=== PATIENT | male | born 1930 | race Two or more races ===

== ENCOUNTER 2022-03-25 15:25 | Inpatient (IN) | payer OTHER ==
[~2022-03-25] VITALS: Ht 185.4 cm; Wt 59.5 kg
--- NOTE | 2022-03-25 15:30 | NUR ---
[facility], STAFF NOTED LOW O2SAT WHILE PERFORMING WOUND CARE. PLACED ON BED, AAOX4, TACHYPNEIC RR- 28, SATURATING AT 88% WITH 2LIT O2 CHANGED TO NRM 15LIT O2 SATURATING AT 98%.
--- NOTE | 2022-03-25 15:49 | NUR ---
DR REESE AT BEDSIDE
--- NOTE | 2022-03-25 16:22 | NUR ---
BLOOD DRAWN, SWAB FOR COVID19 SENT TO LAB
[2022-03-25 16:25] LABS: ABG BASE EXCESS 2.4 mmol/L; ABG PCO2 32.6 mmHg (35.0-45.0); ABG PO2 84.7 mmHg (75.0-100.0); AaDO2 595.7 mmHg; COHb 1.2 % (0.5-1.5); MetHb 0.2 % (0.0-1.5); O2Hb 94.7 % (94.0-97.0); SITE, ABG Right Radial; VENT MODE, BG NRB
--- NOTE | 2022-03-25 16:34 | NUR ---
registrar assistant stevo marquez left contact number [phone]
[2022-03-25 16:56] LABS: BASOPHILS % (AUTO) 0.2 % (0.0-2.0); EOSINOPHILS % (AUTO) 0.1 % (0.0-6.0); HEMATOCRIT 24 % (39-51); HEMOGLOBIN 7.7 g/dL (13.5-17.5); LYMPHOCYTES # (AUTO) 0.7 K/uL (0.8-4.8); LYMPHOCYTES % (AUTO) 9.5 % (20.0-44.0); MEAN CORPUSCULAR HGB CONC 33 g/dl (31.0-36.0); MEAN CORPUSCULAR VOLUME 87 fL (80-96); MONOCYTES # (AUTO) 0.4 K/uL (0.1-1.30); MONOCYTES % (AUTO) 5.2 % (2.0-12.0); NEUTROPHILS # (AUTO) 6.1 K/uL (1.8-8.9); PLATELET COUNT (AUTO) 235 K/uL (150-450); WHITE BLOOD COUNT (AUTO) 7.2 K/uL (4.3-11.0)
[2022-03-25 17:22] LABS: ALANINE AMINOTRANSFERASE 15 U/L (12-78); ALBUMIN 2.8 g/dL (3.4-5.0); ALKALINE PHOSPHATASE 96 U/L (46-116); ASPARTATE AMINOTRANSFERASE 28 U/L (15-37); BILIRUBIN,DIRECT 0.2 mg/dL (0.0-0.2); BILIRUBIN,TOTAL 0.8 mg/dL (0.2-1.0); CALCIUM, SERUM 9.5 mg/dL (8.5-10.1); CARBON DIOXIDE 26 mmol/L (21-32); CHLORIDE 106 mmol/L (98-107); CREATININE 2.7 mg/dL (0.6-1.3); GLUCOSE 204 mg/dL (74-106); POTASSIUM 3.5 mmol/L (3.5-5.1); SODIUM SERUM 147 mmol/L (136-145); TOTAL PROTEIN, SERUM 6.9 g/dL (6.4-8.2)
[2022-03-25] MEDS ORDERED: IV NS 0.9% 1,000 ML BAG IV ONE (17:30)
[2022-03-25 17:39] LABS: UREA NITROGEN, BLOOD 97 mg/dL (7-18)
--- NOTE | 2022-03-25 18:54 | NUR ---
PTS PHONE #: [phone]. pT ADDRESS [id number] PT DAUGHTER MIRNA,
[2022-03-25 18:59] LABS: LYMPHOCYTES % (MANUAL) 7 % (16-48); MONOCYTES % (MANUAL) 3 % (0-11.0); NEUTROPHILS % (MANUAL) 90 (42-76)
--- NOTE | 2022-03-25 19:02 | NUR ---
CALLED [facility] AGAIN WITH UPDATED ADDRESS. ADDRESS ON FILE DID NOT MATCH WHAT [facility] HAD FOR PT. EXPECTING CALL BACK.
--- NOTE | 2022-03-25 20:07 | NUR ---
SWAB FOR RAPID INFLUENZA SENT TO LAB
--- NOTE | 2022-03-25 21:50 | NUR ---
RN NOTES RECEIVED REPORT FROM ER NURSE BEA.
--- NOTE | 2022-03-25 21:53 | NUR ---
REPORT GIVEN TO CARYN JEAN BAPTISTE ICU ROOM 263 FOR SUJEY
[2022-03-25] MEDS ORDERED: ACETAMINOPHEN 325 MG TABLET PO PRN (22:00)
[2022-03-25] MEDS ORDERED: Z GUARD REMEDY 4 OZ OINT TP PRN (22:00)
[2022-03-25] MEDS ORDERED: ONDANSETRON HCL/PF 4 MG/2 ML VIAL IVP PRN (22:00)
[2022-03-25] MEDS ORDERED: AMLO-213 PO (22:13)
[2022-03-25] MEDS ORDERED: ATOR40TA PO (22:13)
[2022-03-25] MEDS ORDERED: PANT40TA49 PO (22:13)
[2022-03-25] MEDS ORDERED: POLY17PO4 PO (22:13)
[2022-03-25] MEDS ORDERED: FERR325T30 PO (22:13)
[2022-03-25] MEDS ORDERED: TRAZ-182 PO (22:13)
--- NOTE | 2022-03-25 22:20 | NUR ---
U/S TECH AT BEDSIDE
[2022-03-25] MEDS ORDERED: FURO20TA4 PO (22:21)
[2022-03-25] MEDS ORDERED: CLOP75TA15 PO (22:21)
[2022-03-25] MEDS ORDERED: CARB1TAB21 PO (22:21)
[2022-03-25] MEDS ORDERED: ISOS30TA86 PO (22:21)
[2022-03-25] MEDS ORDERED: GABA-532 PO (22:21)
[2022-03-25] MEDS ORDERED: HYDR100T27 PO (22:21)
[2022-03-25] MEDS ORDERED: LABE200T5 PO (22:21)
[2022-03-25] MEDS ORDERED: HEPARIN INFUSION/D5W 500 ML IV PRN (23:00)
--- NOTE | 2022-03-25 23:15 | NUR ---
CT OF THE HEAD DONE ON THE WAY FOR ADMISSION TO ICU
--- NOTE | 2022-03-25 23:20 | NUR ---
CARPET WEAVER NOTES ADMITTED A 89 Y/O MALE [facility], WITH DX OF RESPIRATORY FAILURE AND WITH HX OF HEART FAILURE, RESPIRATORY FAILURE, CKD STAGE 3, PULMONARY HTN, CAD WITH CABG X 2. A/O X 2 WITH PERIODS OF CONFUSION, ON NON REBREATHER MASK @ 15 LMP SATING AT 98%, RESPIRATORY EVEN AND UNLABORED. NOTED WITH LFA # 20 PERIPHERAL LINE, FLUSHED WITH NS, NO S/S OF INFILTRATION NOTED. PATIENT IMMEDIATELY CONNECTED TO SIGNAL WIRER SHOWING NSR/ SINUS BRADYCARDIA. BODY ASSESSMENT DONE, NOTED WITH LEFT HEEL AND RIGHT HEEL PRESSURE INJURY, INITIAL TREATMENT DONE. PHOTO TAKEN AND PLACED IT PATIENT CHART. ALL SAFETY PRECAUTION PROVIDED. BED IN LOWEST POSITION. LOCKED, BED ALARM ARMED. CALL LIGHT WITH REACH.
[2022-03-25 23:25] VITALS: BP 159/65
[2022-03-26] VITALS (29 sets, daily range): BP systolic 138–170; BP diastolic 50–104
--- NOTE | 2022-03-26 00:05 | NUR ---
RN NOTES NOTIFIED [facility] REGARDING PATIENT LATEST HGB- 7.0, HCT-22, PER [facility] HOLD HEPARIN.
[2022-03-26] MEDS ORDERED: HEPARIN INFUSION/D5W 500 ML IV ONE (00:23)
[2022-03-26] MEDS ORDERED: FUROSEMIDE 20 MG/2 ML VIAL IV ONE (00:45)
[2022-03-26] MEDS ORDERED: CEFEPIME 1 GM in IV D5W 50 ML IV ONE (01:00)
[2022-03-26] MEDS ORDERED: CEFEPIME 1 GM VIAL ONE (01:37)
[2022-03-26 05:12] LABS: BASOPHILS % (AUTO) 0.2 % (0.0-2.0); EOSINOPHILS % (AUTO) 0.2 % (0.0-6.0); HEMATOCRIT 20 % (39-51); LYMPHOCYTES # (AUTO) 0.7 K/uL (0.8-4.8); LYMPHOCYTES % (AUTO) 9.2 % (20.0-44.0); MEAN CORPUSCULAR HGB CONC 33 g/dl (31.0-36.0); MEAN CORPUSCULAR VOLUME 88 fL (80-96); MONOCYTES # (AUTO) 0.4 K/uL (0.1-1.30); MONOCYTES % (AUTO) 6.3 % (2.0-12.0); NEUTROPHILS % (AUTO) 84.1 % (43.0-81.0); PLATELET COUNT (AUTO) 191 K/uL (150-450); RED BLOOD CELL COUNT(AUTO) 2.33 MIL/uL (4.5-6.0); WHITE BLOOD COUNT (AUTO) 7.1 K/uL (4.3-11.0)
[2022-03-26 05:13] LABS: HEMOGLOBIN 6.7 g/dL (13.5-17.5)
[2022-03-26 05:50] LABS: IRON, SERUM 24 ug/dl (50-175); TOTAL IRON BINDING CAPACITY 188 ug/dl (250-450)
[2022-03-26 06:02] LABS: CHOLESTEROL 117 mg/dL (<200); FERRITIN 399 ng/mL (8-388); HDL CHOLESTEROL 43 mg/dL (40-60); LDL 57 mg/dL (0-99); THYROID STIMULATING HORMONE 3.043 uIU/mL (0.358-3.74); TRIGLYCERIDES 94 mg/dL (30-150)
[2022-03-26 06:10] LABS: CALCIUM, SERUM 9.6 mg/dL (8.5-10.1); CARBON DIOXIDE 26 mmol/L (21-32); CHLORIDE 109 mmol/L (98-107); CREATININE 2.6 mg/dL (0.6-1.3); GLUCOSE 181 mg/dL (74-106); MAGNESIUM 2.4 mg/dL (1.8-2.4); PHOSPHORUS 4.4 mg/dL (2.5-4.9); SODIUM SERUM 150 mmol/L (136-145)
[2022-03-26 06:12] LABS: UREA NITROGEN, BLOOD 95 mg/dL (7-18)
--- NOTE | 2022-03-26 08:06 | NUR ---
SUPERVISOR PRESS ROOM OPENING NOTES: PT IN BED ASLEEP BUT WAKES UP SCREAMS FOR HELP ONLY WANTS TO GO HOME, ON NON REBREATHER 15 L/MIN, RT AT BEDSIDE DRAWING ABG.O2 SAT 97%, NOTED WITH CONFUSION, SALINE LOCK AT LFA #20 G CONNECTED TO NS TKO.BED IN LOW AND LOCKED POSITION, CONDOM CATH IN PLACE, SIDE RAIL UP, CALL LIGHT WITHIN REACH WILL MONITOR
[2022-03-26] MEDS: PANTOPRAZOLE 40 MG TABLET.DR PO SCH (08:17)
[2022-03-26 08:28] LABS: ABG BASE EXCESS 1.9 mmol/L; ABG OXYGEN SATURATION 99.3 % (92.0-98.5); ABG PCO2 36.7 mmHg (35.0-45.0); ABG PH 7.463 (7.350-7.450); ABG PO2 293.1 mmHg (75.0-100.0); COHb 0.5 % (0.5-1.5); MetHb 0.3 % (0.0-1.5); O2Hb 98.5 % (94.0-97.0); SITE, ABG Right Radial; VENT MODE, BG NRB
[2022-03-26] MEDS ORDERED: HEPARIN SODIUM, PORCINE 5000 UNITS/1 ML VIAL SQ SCH (09:00)
--- NOTE | 2022-03-26 09:02 | NUR ---
RN NOTES: CALLED DAUGHTER MIRNA AT [phone] TO OBTAIN CONSENT FOR BLOOD TRANSFUSION, NO ANSWER LEFT MESSAGE TO CALL BACK
[2022-03-26] MEDS: HEPARIN INFUSION/D5W 500 ML IV PRN (13:53)
[2022-03-26] MEDS ORDERED: HEPARIN SODIUM, PORCINE 5000 UNITS/1 ML VIAL IV ONE ×2 (14:00)
[2022-03-26 16:14] LABS: HEMOGLOBIN 8.8 g/dL (13.5-17.5)
[2022-03-26] MEDS: hydrALAZINE HCL IV 20 MG VIAL IV PRN ×2 (17:10→23:06)
[2022-03-26 17:22] LABS: LYMPHOCYTES % (MANUAL) 6 % (16-48); MONOCYTES % (MANUAL) 5 % (0-11.0); NEUTROPHILS % (MANUAL) 89 (42-76)
--- NOTE | 2022-03-26 19:30 | NUR ---
CU RN CLOSING NOTE PT IN BED ASLEEP BUT EASILY AROUSABLE ON NASAL CANNULA 6 LITER/MIN, NO SOB NOTED ALL DUE MEDS ARE GIVEN ORDERED.CONTINUE ON HEPARIN DRIP, NO BLEEDING NOTED.ALL DUE MEDS ARE GIVEN ORDERED, BED IN LOW AND LOCKED POSITION, SIDE RAILS UP, NO S/S OF PAIN OR DISCOMFORT, ENDORSE TO MARINE CARGO INSPECTOR RN FOR SUJEY
--- NOTE | 2022-03-26 20:00 | NUR ---
RN NOTE APTT RESULTED 56.3. NO ADJUSTMENTS MADE ON TITRATION PER PROTOCOL.
--- NOTE | 2022-03-26 20:22 | NUR ---
RN OPENING NOTE PT SLEEPING WITH EQUAL CHEST RISE AND FALL ON 6 LPM NC. SKIN IS PALE AND DRY. NO ACUTE SIGNS OF DISTRESS. DENIES OTHER NEEDS AT THIS TIME. BED LOCKED AND AT LOWEST LEVEL WITH 2 RAILS UP. CALL LIGHT WITHIN REACH. L FA 20G INFUSING HEPARIN AT 1100 U/HR. NO ACUTE SIGNS OF DISTRESS. BED LOCKED AND AT LOWEST LEVEL WITH 2 RAILS UP. CALL LIGHT WITHIN REACH. BED ALARM ON.
[2022-03-26 22:41] LABS: HEMOGLOBIN 7.8 g/dL (13.5-17.5)
[2022-03-27] VITALS (29 sets, daily range): BP systolic 136–183; BP diastolic 50–75
[2022-03-27] MEDS: CEFEPIME 2 GM in IV D5W 100 ML IV SCH (02:02)
--- NOTE | 2022-03-27 04:12 | NUR ---
RN NOTE APTT RESULTED 52.4. NO CHANGES MADE TO HEPARIN INFUSION PER PROTOCOL.
[2022-03-27 05:17] LABS: BASOPHILS % (AUTO) 0.2 % (0.0-2.0); EOSINOPHILS % (AUTO) 1.1 % (0.0-6.0); HEMATOCRIT 26 % (39-51); HEMOGLOBIN 8.5 g/dL (13.5-17.5); LYMPHOCYTES # (AUTO) 0.7 K/uL (0.8-4.8); LYMPHOCYTES % (AUTO) 6.4 % (20.0-44.0); MEAN CORPUSCULAR HGB CONC 33 g/dl (31.0-36.0); MEAN CORPUSCULAR VOLUME 88 fL (80-96); MONOCYTES # (AUTO) 0.7 K/uL (0.1-1.30); MONOCYTES % (AUTO) 6.3 % (2.0-12.0); NEUTROPHILS # (AUTO) 9.1 K/uL (1.8-8.9); PLATELET COUNT (AUTO) 221 K/uL (150-450); RED BLOOD CELL COUNT(AUTO) 2.94 MIL/uL (4.5-6.0); WHITE BLOOD COUNT (AUTO) 10.6 K/uL (4.3-11.0)
[2022-03-27 05:23] LABS: CALCIUM, SERUM 9.5 mg/dL (8.5-10.1); CARBON DIOXIDE 27 mmol/L (21-32); CHLORIDE 109 mmol/L (98-107); CREATININE 2.5 mg/dL (0.6-1.3); UREA NITROGEN, BLOOD 77 mg/dL (7-18)
[2022-03-27 05:53] LABS: SODIUM SERUM 148 mmol/L (136-145)
[2022-03-27 06:04] LABS: ABG BASE EXCESS 3.8 mmol/L; ABG OXYGEN SATURATION 89.6 % (92.0-98.5); ABG PCO2 37.6 mmHg (35.0-45.0); ABG PH 7.481 (7.350-7.450); ABG PO2 57.8 mmHg (75.0-100.0); AaDO2 213.1 mmHg; COHb 0.9 % (0.5-1.5); MetHb 0.2 % (0.0-1.5); O2Hb 88.6 % (94.0-97.0); SITE, ABG Right Radial; VENT MODE, BG NASAL CANNULA 6 LPM
[2022-03-27 06:05] LABS: GLUCOSE 365 mg/dL (74-106); POTASSIUM 2.6 mmol/L (3.5-5.1)
[2022-03-27] MEDS: hydrALAZINE HCL IV 20 MG VIAL IV PRN (06:23)
[2022-03-27] MEDS ORDERED: POTASSIUM CHLORIDE 20 MEQ TAB.PRT.SR PO ONE (07:00)
[2022-03-27] MEDS: POTASSIUM CL. PREMIX PERIPHER. 50 ML IV SCH ×3 (07:23→09:29)
[2022-03-27] MEDS: PANTOPRAZOLE 40 MG TABLET.DR PO SCH (07:24)
--- NOTE | 2022-03-27 07:30 | NUR ---
RN CLOSING NOTE PT A&OX1. PT PLACED ON SIMPLE FACE MASK BY RT AT 10 LPM. SKIN IS PALE AND DRY. BP HAS BEEN ELEVATED GREATER THAN 160 DURING SHIFT. GIVEN HYDRALAZINE IV Q6 PRN. L FA 20G INFUSING HEPARIN AT 1100 U/HR. NO ACUTE SIGNS OF DISTRESS. BED LOCKED AND AT LOWEST LEVEL WITH 2 RAILS UP. CALL LIGHT WITHIN REACH. BED ALARM ON.
--- NOTE | 2022-03-27 07:30 | NUR ---
RN OPENING NOTE RECEIVED PT FROM SKIRT MAKER SLEEPING WITH EQUAL CHEST RISE AND FALL ON 10 LPM SIMPLE MASK. SKIN IS PALE AND DRY. NO ACUTE SIGNS OF DISTRESS. DENIES OTHER NEEDS AT THIS TIME. BED LOCKED AND AT LOWEST LEVEL WITH 3 RAILS UP. K+ LEVEL AT 2.57. ORDERS FOR K+ REPLACEMENT RECEIVED. HEMOGLOBIN AT 8.5. CALL LIGHT WITHIN REACH. L FA 20G INFUSING HEPARIN AT 1100 U/HR. NO ACUTE SIGNS OF DISTRESS. BED LOCKED. CALL LIGHT WITHIN REACH. BED ALARM ON. WILL MONITOR THROUGHOUT DAY
[2022-03-27] MEDS ORDERED: NTG 50 MG/D5W250 ML BOTTL 250 ML IV PRN ×3 (09:00→16:00)
[2022-03-27] MEDS: hydrALAZINE HCL 50 MG TABLET PO SCH ×3 (09:29→16:46)
[2022-03-27] MEDS: FUROSEMIDE 100 MG/10 ML VIAL IV SCH ×3 (09:30→16:46)
--- NOTE | 2022-03-27 09:43 | NUR ---
RN NOTE PATIENT KEEPS YELLING FOR HELP. PATIENT SAYS HE CANNOT BREATHE WELL BUT IS SATING AT 99%% O2. STILL AT 10L ON SIMPLE FACE MASK. COMDOM CATH CHANGED
[2022-03-27] MEDS: HEPARIN INFUSION/D5W 500 ML IV PRN (12:26)
--- NOTE | 2022-03-27 15:30 | NUR ---
RN NOTE NITROGLYCERINE DRIP STARTED AT 3MCG/MIN
--- NOTE | 2022-03-27 17:40 | NUR ---
RN NOTE [facility], LAB NAMED [facility]EE[facility]K LEE. 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
--- NOTE | 2022-03-27 19:23 | NUR ---
SMALL BOAT ENGINEER OPENING NOTES: RECEIVED PT IN BED AT SITTING POSITION. ALERT/ORIENTED X2 WITH CONFUSION AND VERBALLY RESPONSIVE. KEPT ASKING FOR WATER. ON SIMPLE FACE MASK AT 10 LPM AND PT TOLERATED WELL. IV ACCESS ON LFA#20G AND RT WRIST#20G INTACT AND PATENT. NO S/S OF INFILTRATIONS. INFUSING HEPARIN AT 1100 U/HR. NITRO DRIP RUNNING AT 20 MCG/MIN. NO C/O PAIN OR DISCOMFORT. NO ACUTE DISTRESS. ALL SAFETY MEASURES IN PLACE. BED IN LOWEST POSITION AND LOCKED. SIDE RAILS UP- X3, PLACE CALL LIGHT WITHIN REACH. BED ALARM ON. WILL CONTINUE TO MONITOR
--- NOTE | 2022-03-27 19:29 | NUR ---
RN CLOSING NOTE PT A&OX1. PT ON SIMPLE FACE MASK 10 LPM. SKIN IS PALE AND DRY. BP HAS BEEN ELEVATED GREATER THAN 150 DURING SHIFT. L FA 20G INFUSING HEPARIN AT 1100 U/HR. NITRO DRIP RUNNING AT 20 MCG/MIN. PATIENT CONSTANTLY ASKING FOR WATER AND AIR. O2 SAT AT 98% +. NO ACUTE SIGNS OF DISTRESS. BED LOCKED AND AT LOWEST LEVEL WITH 3 RAILS UP. CALL LIGHT WITHIN REACH. BED ALARM ON. WILL ENDORSE TO FIBROUS WALLBOARD INSPECTOR FOR CONTINUATION OF CARE
[2022-03-27 21:08] LABS: HEMOGLOBIN 8.2 g/dL (13.5-17.5)
[2022-03-27 22:09] LABS: HEMOGLOBIN 8.2 g/dL (13.5-17.5)
[2022-03-28] VITALS (24 sets, daily range): BP systolic 130–166; BP diastolic 54–77
[2022-03-28] MEDS: CEFEPIME 2 GM in IV D5W 100 ML IV SCH (02:14)
[2022-03-28 04:51] LABS: BASOPHILS % (AUTO) 0.4 % (0.0-2.0); EOSINOPHILS % (AUTO) 1.8 % (0.0-6.0); HEMATOCRIT 29 % (39-51); HEMOGLOBIN 9.5 g/dL (13.5-17.5); LYMPHOCYTES % (AUTO) 13.1 % (20.0-44.0); MEAN CORPUSCULAR HGB CONC 33 g/dl (31.0-36.0); MEAN CORPUSCULAR VOLUME 87 fL (80-96); MONOCYTES # (AUTO) 0.6 K/uL (0.1-1.30); MONOCYTES % (AUTO) 8.3 % (2.0-12.0); NEUTROPHILS # (AUTO) 5.7 K/uL (1.8-8.9); NEUTROPHILS % (AUTO) 76.4 % (43.0-81.0); PLATELET COUNT (AUTO) 237 K/uL (150-450); RED BLOOD CELL COUNT(AUTO) 3.31 MIL/uL (4.5-6.0); WHITE BLOOD COUNT (AUTO) 7.4 K/uL (4.3-11.0)
[2022-03-28 04:55] LABS: ALANINE AMINOTRANSFERASE 54 U/L (12-78); ALBUMIN 2.6 g/dL (3.4-5.0); ALKALINE PHOSPHATASE 89 U/L (46-116); ASPARTATE AMINOTRANSFERASE 19 U/L (15-37); BILIRUBIN,TOTAL 0.9 mg/dL (0.2-1.0); CALCIUM, SERUM 9.9 mg/dL (8.5-10.1); CARBON DIOXIDE 32 mmol/L (21-32); CHLORIDE 106 mmol/L (98-107); CREATININE 2.1 mg/dL (0.6-1.3); GLUCOSE 193 mg/dL (74-106); MAGNESIUM 2.2 mg/dL (1.8-2.4); PHOSPHORUS 3.2 mg/dL (2.5-4.9); POTASSIUM 3.1 mmol/L (3.5-5.1); SODIUM SERUM 148 mmol/L (136-145); TOTAL PROTEIN, SERUM 6.7 g/dL (6.4-8.2); UREA NITROGEN, BLOOD 66 mg/dL (7-18)
--- NOTE | 2022-03-28 05:36 | NUR ---
RN NOTES: PT'S APTT 67.6. NO CHANGES. NEXT PTT 03/29/22 AT 5 AM.
--- NOTE | 2022-03-28 07:39 | NUR ---
ENGRAVER SIGNATURE OPENING NOTES: RECEIVED PT IN BED AT SITTING POSITION. ALERT/ORIENTED X2 WITH CONFUSION AND VERBALLY RESPONSIVE. ON SIMPLE FACE MASK AT 10 LPM AND PT TOLERATED WELL O2 SAT @96%, IV ACCESS ON LFA#20G AND RT WRIST#20G INTACT AND PATENT. NO S/S OF INFILTRATIONS. INFUSING HEPARIN AT 1100 U/HR. NITRO DRIP RUNNING AT 20 MCG/MIN. NO C/O PAIN OR DISCOMFORT. NO ACUTE DISTRESS. ALL SAFETY MEASURES IN PLACE. BED IN LOWEST POSITION AND LOCKED. SIDE RAILS UP- X3, PLACE CALL LIGHT WITHIN REACH. BED ALARM ON. PLAN OF CARE CONTINUE.
--- NOTE | 2022-03-28 08:00 | NUR ---
NOTED BP 154/54 HR 63, TITRATED NITROGLYCERIN FROM 20MCG/MIN TO 15 MCG/MIN, ROUTINE HYDRALAZINE PO 100MG GIVEN. PATIENT CONSUMED 75% OF BREAKFAST, NOTED PATIENT HAVING A HARD TIME CHEWING FOOD, ST EVAL ORDER PLACED, NO COUGHING NOTED. PLAN OF CARE CONTINUE.
--- NOTE | 2022-03-28 08:00 | NUR ---
RT AT BEDSIDE, CHANGED FROM SIMPLE MASK TO NASAL CANNULA AT 4LPM 02,SATING AT 96%.
[2022-03-28] MEDS: hydrALAZINE HCL 50 MG TABLET PO SCH ×3 (08:21→12:15)
[2022-03-28] MEDS: PANTOPRAZOLE 40 MG TABLET.DR PO SCH (08:21)
[2022-03-28] MEDS ORDERED: FERROUS SULFATE (325 MG) 325 MG/TAB TABLET PO SCH (09:00)
[2022-03-28] MEDS ORDERED: POLYETHYLENE GLYCOL 3350 17 GM POWD.PACK PO SCH (09:00)
[2022-03-28] MEDS ORDERED: FUROSEMIDE 20 MG TABLET PO SCH (09:00)
[2022-03-28] MEDS ORDERED: AMLODIPINE BESYLATE 10 MG TABLET PO SCH (09:00)
[2022-03-28] MEDS ORDERED: LABETALOL HCL (100MG) 100 MG TABLET PO SCH (09:00)
[2022-03-28] MEDS ORDERED: MUPIROCIN OINT 2% 22 GM TUBE NS SCH (09:00)
[2022-03-28] MEDS ORDERED: ISOSORBIDE MONONITRATE (30MG) 30 MG TAB.SR.24H PO SCH (09:00)
[2022-03-28] MEDS ORDERED: GABAPENTIN 100 MG CAPSULE PO SCH (09:00)
--- NOTE | 2022-03-28 09:18 | NUR ---
NOTED NITROGLYCERIN D/C,NOTED AND CARRIED OUT, PLAN OF CARE CONTINUE.
[2022-03-28] MEDS ORDERED: NITROGLYCERIN 30 GM TUBE TP SCH (09:30)
[2022-03-28] MEDS: CARBIDOPA/LEVODOPA 25/100 MG 1 UDTAB PO SCH ×2 (09:33→12:15)
[2022-03-28] MEDS: HEPARIN INFUSION/D5W 500 ML IV PRN (09:56)
[2022-03-28] MEDS ORDERED: POTASSIUM CHLORIDE 20 MEQ TAB.PRT.SR PO SCH (10:30)
--- NOTE | 2022-03-28 11:07 | NUR ---
RECEIVED A CALL FROM HAND OR MACHINE PASTER IMAN OF [place], GAVE REPORT ABOUT THE PATIENT, PER HAND OR MACHINE PASTER SHE WILL CALL BACK IF SHE FOUND A BED FOR PATIENT. PLAN OF CARE CONTINUE.
[2022-03-28 13:29] LABS: HEMOGLOBIN 9.2 g/dL (13.5-17.5)
--- NOTE | 2022-03-28 14:01 | NUR ---
RECEIVED A CALL FROM [facility] PATIENT IS GOING TO RM#[id number] PHONE # [phone], ACCEPTING ANTONIO OLIVIER, UTILITY MECHANIC TIME 1530H AMBULANCE WITH CCTRN, [facility]. DISCHARGE PAPERWORKS DONE.
--- NOTE | 2022-03-28 14:21 | NUR ---
CALLED [facility] AND SPOKE TO ANGELES JEAN BAPTISTE AND GAVE REPORT, CONFIRMED UNDERSTANDING.
--- NOTE | 2022-03-28 15:45 | NUR ---
[facility] ARRIVED WITH 2 EMT'S AND RN, GAVE REPORT TO LOU JEAN BPATISTE, ALL PERSONAL BELONGINGS RELEASED TO THE PATIENT, ALL PAPER WORKS RELEASED.
--- NOTE | 2022-03-28 16:12 | NUR ---
PATIENT LEFT THE HOSPITAL VIA GURNEY WITH RN AND 2 EMT'S, ALL PERSONAL BELONGINGS AND DISCHARGE PAPERWORKS RELEASED TO THE PATIENT.
[2022-03-28] MEDS ORDERED: ATORVASTATIN 40 MG TABLET PO SCH (18:00)
[2022-03-28] MEDS ORDERED: TRAZODONE 50 MG TABLET PO SCH ×2 (18:00)
[2022-03-29] MEDS ORDERED: PANTOPRAZOLE 40 MG TABLET.DR PO SCH (09:00)
== END 2022-03-28 16:41 | disposition short-term general hospital (02) | DRG 175 ==
LOC: ER 15:44 → ICU 21:15
PROVIDERS: ADMIT Nurse Practitioner Family; ATTEND Nurse Practitioner Acute Care
PROC: 30233N1 Transfusion of Nonautologous Red Blood Cells into Peripheral Vein, Percutaneous Approach (ICD-10-PCS; principal; 2022-03-26)
DX: I26.99 Other pulmonary embolism without acute cor pulmonale (principal); E43 Unspecified severe protein-calorie malnutrition; J15.9 Unspecified bacterial pneumonia; J96.01 Acute respiratory failure with hypoxia; G93.41 Metabolic encephalopathy; N17.0 Acute kidney failure with tubular necrosis; I50.43 Acute on chronic combined systolic (congestive) and diastolic (congestive) heart failure; I13.0 Hypertensive heart and chronic kidney disease with heart failure and stage 1 through stage 4 chronic kidney disease, or unspecified chronic kidney disease; E87.0 Hyperosmolality and hypernatremia; R64 Cachexia; I82.411 Acute embolism and thrombosis of right femoral vein; Z68.1 Body mass index [BMI] 19.9 or less, adult; Z20.822 Contact with and (suspected) exposure to COVID-19; I27.20 Pulmonary hypertension, unspecified; I16.0 Hypertensive urgency; I25.10 Atherosclerotic heart disease of native coronary artery without angina pectoris; N18.30 Chronic kidney disease, stage 3 unspecified; Z88.8 Allergy status to other drugs, medicaments and biological substances; Z66 Do not resuscitate; Z95.1 Presence of aortocoronary bypass graft; Y95 Nosocomial condition; E11.22 Type 2 diabetes mellitus with diabetic chronic kidney disease; E78.5 Hyperlipidemia, unspecified; E88.09 Other disorders of plasma-protein metabolism, not elsewhere classified; E87.6 Hypokalemia; D63.8 Anemia in other chronic diseases classified elsewhere; D50.0 Iron deficiency anemia secondary to blood loss (chronic); Z79.02 Long term (current) use of antithrombotics/antiplatelets; Z79.899 Other long term (current) drug therapy
CPT/HCPCS: 36415; 36600; 70450-TC; 71045-TC; 76770-TC; 80048-TC; 80053-TC; 80061-TC; 80076-TC; 82607-TC; 82728-TC; 82803-TC; 83540-TC; 83605-TC; 83735-TC; 83880; 84100-TC; 84443-TC; 84484-TC; 85025-TC; 85027-TC; 85378-TC; 85730-TC; 86850-TC; 87040-TC; 87081-TC; 93307-TC; 93970-TC; 97110-TC; 97112-TC; 97530-TC; A4349; A6403; C9803; G0378; G0480; J0360; J0692; J1644; J1940; J3480; J3490; J7050; J7060; P9016